=== PATIENT | female | born 1970 | race Caucasian/White ===

== ENCOUNTER 2019-02-09 00:02 | Emergency (ER) | payer MEDICARE ==
[2019-02-09 00:10] VITALS: BP 123/67; PULSE 99; RESP 18; TEMP 98.2; O2SAT 98
--- NOTE | 2019-02-09 01:10 | ED PDOC ---
HPI: CCC, URI, Sore Throat Time Seen by Provider: 02/09/19 01:07 Chief Complaint (Nursing): ENT Problem Chief Complaint (Provider): decreased hearing right ear History Per: Patient (48 y/o female here with right eye ringing and loss of hearing. Denies any uri/cough. NO fevers/chills. Attempted use of polytrim ear drops.) Past Medical History Reviewed: Historical Data, Nursing Documentation, Vital Signs Vital Signs: Last Vital Signs Temp 98.2 F 02/09/19 00:08 Pulse 99 H 02/09/19 00:08 Resp 18 02/09/19 00:08 BP 123/67 02/09/19 00:08 Pulse Ox 98 02/09/19 00:08 - Family History Family History: States: No Known Family Hx - Home Medications Home Medications: Ambulatory Orders Medication Instructions Recorded Methylprednisolone [Medrol Dose 4 mg PO DAILY #21 mg 02/09/19 Pack (21 tabs)] Pseudoephedrine [Sudafed Tab] 60 mg PO Q6 PRN #24 tab 02/09/19 - Allergies Allergies/Adverse Reactions: Allergies Allergy/AdvReac Type Severity Reaction Status Date / Time vancomycin Allergy RASH Verified 02/09/19 00:08 Review of Systems ROS Statement: Except As Marked, All Systems Reviewed And Found Negative ENT: Positive for: Other (decreased ear hearing.) Physical Exam - Reviewed Nursing Documentation Reviewed: Yes Vital Signs Reviewed: Yes - Physical Exam Appears: Positive for: Well, Non-toxic, No Acute Distress Head Exam: Positive for: ATRAUMATIC, NORMAL INSPECTION, NORMOCEPHALIC Skin: Positive for: Normal Color, Warm, DRY Eye Exam: Positive for: EOMI, Normal appearance, PERRL ENT: Negative for: Normal ENT Inspection (decreased cone of light bilateral ear. TM otherwise no erythema. nontender ear canal.) Neck: Positive for: Normal, Painless ROM Cardiovascular/Chest: Positive for: Regular Rate, Rhythm Respiratory: Positive for: CNT, Normal Breath Sounds Gastrointestinal/Abdominal: Positive for: Normal Exam, Soft Back: Positive for: Normal Inspection Extremity: Positive for: Normal ROM Neurological/Psych: Positive for: Awake, Alert, Normal Tone - ECG O2 Sat by Pulse Oximetry: 98 - Progress ED Course And Treament: d/w with patient if pseudoephedrine does not improve syptoms patient should f/u with Dr. Angelo on Sunday for testing. IF patient unable to make appt, can start solumedrol with repeat blood glucose testing. Disposition - Clinical Impression Clinical Impression: Nasal congestion, Hearing loss - Patient ED Disposition Is Patient to be Admitted: No - Disposition Referrals: Mitchel Angelo MD [Staff Provider] - Disposition: Routine/Home Disposition Time: 01:11 Condition: FAIR Prescriptions: Methylprednisolone [Medrol Dose Pack (21 tabs)] 4 mg PO DAILY #21 mg Pseudoephedrine [Sudafed Tab] 60 mg PO Q6 PRN #24 tab PRN Reason: Nasal Congestion Instructions: Hearing Loss in Adults
== END 2019-02-09 01:35 | disposition home or self-care (01) ==
LOC: H.ER 00:02
DX: R09.81 Nasal congestion (principal); H91.90 Unspecified hearing loss, unspecified ear